=== PATIENT | female | born 1995 | race African-American/Black ===

== ENCOUNTER 2016-05-09 00:37 | Emergency (ER) | payer OTHER ==
[~2016-05-09] VITALS: Ht 180.3 cm; Wt 90.7 kg
[~2016-05-09 00:37] MED LIST: AMOXICILLIN 50500 M1 PO; FLOVENT HFA 2220 MC1 IH; HYDROCODON-ACE1 EAC7 PO; IBUPROFEN 800800 M1 PO; MEDROLDOSEPACK PO; NAPROSYN500 MG PO; NORCO 5-325 TA1 EACH PO; ONDANSETRON HCL4 M2 PO; PHENERGAN 25 MG25 M1 PO; PREDNISONE 20 M20 MG PO; PRILOSEC20 MG PO; PROAIR HFA8.5 GM INH; PROVENTIL HFA6.7 G1 INH; RISPERDAL 1 MG T1 MG PO; RISPERDAL0.25 MG; TOPAMAX 100 MG100 MG; TOPAMAX 25 MG T25 M1 PG; ZANTAC 150MG T150 MG PO
[2016-05-09] MEDS ORDERED: TUSSIONEX PENN473 ML PO (01:11)
[2016-05-09 01:26] VITALS: BP 113/67
== END 2016-05-09 01:28 | disposition home or self-care (01) ==
LOC: ER 00:37
DX: J06.9 Acute upper respiratory infection, unspecified (principal); J45.909 Unspecified asthma, uncomplicated; K21.9 Gastro-esophageal reflux disease without esophagitis

== ENCOUNTER 2016-08-01 16:57 | Emergency (ER) | payer OTHER ==
[~2016-08-01] VITALS: Ht 180.3 cm; Wt 88.5 kg
[~2016-08-01 16:57] MED LIST changes: +TUSSIONEX PENN473 ML PO
[2016-08-01 18:25] LABS: ABSOLUTE NEUTROPHILS 3.2 thou/uL (1.4-8.2); BASOPHILS 0.4 % (0.0-2.0); EOSINOPHILS 0.9 % (0.0-3.0); HEMOGLOBIN 12.2 gm/dL (12.0-15.0); LYMPHOCYTES 42.9 % (24.0-44.0); MCH 28.3 pg (26.0-34.0); MCHC 33.8 g/dL (28.0-37.0); MCV 83.6 fL (80.0-100.0); MONOCYTES 6.4 % (1.0-8.0); PLATELET COUNT 336 thou/uL (150-400); POLYS 49.4 % (36.0-66.0); RDW 13.2 % (10.5-14.5); WBC 6.5 thou/uL (4.0-11.0)
[2016-08-01 18:31] LABS: MANUAL DIFF NO
[2016-08-01] MEDS ORDERED: TIZANIDINE HCL4 MG PO (18:41)
[2016-08-01] MEDS ORDERED: IBUPROFEN 600600 M1 PO (18:41)
[2016-08-01] MEDS ORDERED: ONDANSETRON HCL4 M2 PO (18:55)
[2016-08-01 19:02] VITALS: BP 145/86
== END 2016-08-01 19:09 | disposition home or self-care (01) ==
LOC: ER 16:57
PROVIDERS: Nurse Practitioner
DX: R07.89 Other chest pain (principal); F10.99 Alcohol use, unspecified with unspecified alcohol-induced disorder; J45.909 Unspecified asthma, uncomplicated; K21.9 Gastro-esophageal reflux disease without esophagitis; R10.84 Generalized abdominal pain; S10.83XA Contusion of other specified part of neck, initial encounter; V43.62XA Car passenger injured in collision with other type car in traffic accident, initial encounter; W22.12XA Striking against or struck by front passenger side automobile airbag, initial encounter; Y93.9 Activity, unspecified; Y92.9 Unspecified place or not applicable; Y99.9 Unspecified external cause status